=== PATIENT | male | born 1985 | race American Indian/Alaskan Native ===

== ENCOUNTER 2020-07-14 11:01 | Emergency (ER) | payer SELFPAY ==
[2020-07-14 11:18] VITALS: BP 172/117
--- NOTE | 2020-07-14 11:21 | Emergency Department Report ---
Chief Complaint: Back Pain/Injury Stated Complaint: MAJOR BACK PAIN - HPI History of Present Illness: 34-year-old -[place] male presents to the emergency room reporting has a history of hypertension and is noncompliant on medication as well as chronic back pain that he has had for over a year. Patient comes in complaining of back pain. Patient states that he will take intermittent Aleve. Patient denies any recent injuries falls or MVAs. Patient denies any dysuria no penile discharge no hematuria. Patient denies any incontinence of bowel or urine. Patient reports he does not have a primary care provider. Patient reports no limitations from his back pain. Denies any headache shortness of breath or chest pain. - Exam Vital Signs: Vital Signs 07/14/20 11:17 Temperature 98.8 F Pulse Rate 91 H Respiratory 20 Rate Blood Pressure 172/117 [Right] O2 Sat by Pulse 99 Oximetry Physical Exam: Alert and oriented x3 no acute distress nontoxic in appearance. Back full range of motion nontender to palpate Ambulatory without difficulties. MSE screening note: Focused history and physical exam performed. Due to findings the following was ordered: 34-year-old -[place] male presents to the emergency room reporting has a history of hypertension and is noncompliant on medication as well as chronic back pain that he has had for over a year. Patient comes in complaining of back pain. Patient states that he will take intermittent Aleve. Patient denies any recent injuries falls or MVAs. Patient denies any dysuria no penile discharge no hematuria. Patient denies any incontinence of bowel or urine. Patient reports he does not have a primary care provider. Patient reports no limitations from his back pain. Denies any headache shortness of breath or chest pain. Patient is referred to community provider to [facility] and Dr. Pierre Davison. ED Disposition for MSE Condition: Stable
== END 2020-07-14 11:57 | disposition left against medical advice (07) ==
LOC: ED 11:01
DX: M54.6 Pain in thoracic spine (principal); G89.29 Other chronic pain; I10 Essential (primary) hypertension
CPT/HCPCS: 99282

== ENCOUNTER 2021-05-19 11:23 | Emergency (ER) | payer SELFPAY ==
[2021-05-19] MEDS ORDERED: BALANCED SALT IRRIG 1 DROPS, TETRACAINE 0.5% 1 DROPS, FLUORESCEIN 1 MG OD ONE (11:37)
[2021-05-19] MEDS ORDERED: FLUORESCEIN 1 MG STRIP OP ONE (11:45)
[2021-05-19] MEDS ORDERED: TETRACAINE 0.5% OPHTH SOLN 4ML ONE (11:45)
[2021-05-19] MEDS ORDERED: cloNIDine 0.1 MG TAB PO ONE (11:56)
[2021-05-19] MEDS ORDERED: TETRACAINE 0.5% OPHTH SOLN 4ML OD NR (12:00)
[2021-05-19] MEDS ORDERED: BALANCED SALT IRRIG (BSS) OPHTH SOLN 15 ML OD NR (12:00)
[2021-05-19] MEDS ORDERED: FLUORESCEIN 1 MG STRIP OP NR (12:00)
--- NOTE | 2021-05-19 12:01 | Emergency Department Report ---
ED Eye Problem HPI - General Chief complaint: Eye Problems Stated complaint: RIGHT EYE PAIN Time Seen by Provider: 05/19/21 11:28 Source: patient, old records reviewed (Chronic hypertension noted) Mode of arrival: Ambulatory Limitations: No Limitations - History of Present Illness Initial comments: 35-year-old male with a past medical history of chronic hypertension but not on meds presents to the hospital with left-sided eye pain since yesterday morning. Patient states he has had watery discharge from the left eye for last 2 months. Since yesterday am he woke up with blurry vision, increased discharge, feel like his left eye was closed shut, and pain to the superior part of his eyelid with palpation. Patient also has worsening pain with light exposure patient does not wear contact lenses, glasses, denies recent trauma. He works as a recycler forklift driver truck driver. Patient presents hypertensive and has a history of chronic hypertension medication noncompliance without PMD follow - Related Data Previous Rx's Medication Instructions Recorded Last Taken Type Amlodipine Besylate [Norvasc] 5 mg PO DAILY #30 tablet 05/19/21 Unknown Rx Polymyxin B Sulf/Trimethoprim 1 drop OS Q3HR 7 Days drops 05/19/21 Unknown Rx [Polytrim Eye Drops] traMADoL [Ultram 50 MG tab] 50 mg PO Q6HR PRN #14 tablet 05/19/21 Unknown Rx Allergies Allergy/AdvReac Type Severity Reaction Status Date / Time No Known Allergies Allergy Unverified 07/14/20 11:11 ED Review of Systems ROS: Stated complaint: RIGHT EYE PAIN Other details as noted in HPI Comment: All other systems reviewed and negative ED Past Medical Hx - Past Medical History Previous Medical History?: Yes Hx Hypertension: Yes (noncompliant with meds) - Social History Smoking Status: Current Every Day Smoker Substance Use Type: Alcohol, Marijuana - Medications Home Medications: Home Medications Medication Instructions Recorded Confirmed Last Taken Type Amlodipine Besylate [Norvasc] 5 mg PO DAILY #30 tablet 05/19/21 Unknown Rx Polymyxin B Sulf/Trimethoprim 1 drop OS Q3HR 7 Days drops 05/19/21 Unknown Rx [Polytrim Eye Drops] traMADoL [Ultram 50 MG tab] 50 mg PO Q6HR PRN #14 tablet 05/19/21 Unknown Rx ED Physical Exam - General Limitations: No Limitations - Other Other exam information: General: No acute distress Head: Atraumatic Eyes: Left eye conjunctival injection with equal and reactive pupils. Extraocular movements intact. Mild tenderness to lid without noticeable swelling, erythema, or warmth. Visual acuity right 20/20, vision daily left 20/200. Bilateral 20/20 ENT: Moist mucous membranes Neck: Normal appearance, no midline tenderness Chest: Clear to auscultation bilaterally CV: Regular rate and rhythm Abdomen: Soft, normal bowel sounds, nontender, nondistended, no rebound or guarding Back: Normal inspection Extremity: Normal inspection, full range of motion Neuro: Alert O x 3, no facial asymmetry, speech clear, no gross motor sensory deficit Psych: Appropriate behavior Skin: No rash ED Course Vital Signs 05/19/21 11:28 Temperature 99.0 F Pulse Rate 94 H Respiratory 20 Rate Blood Pressure 181/116 O2 Sat by Pulse 99 Oximetry ED Medical Decision Making - Medical Decision Making 35-year-old male presents to the hospital with a left eye redness, pain, and blurry visions. Symptoms suggestive of conjunctivitis. Unfortunately Jasvir-Pen not available at this time to check patient's pressures. Patient did have pain relief with tetracaine drops. Patient be prescribed antibiotic eyedrops for acute conjunctivitis. BP medication prescribed for chronic hypertension. Ou tpatient follow-up encouraged - Differential Diagnosis Conjunctivitis, orbital cellulitis, glaucoma, scleritis Critical Care Time: No Critical care attestation.: If time is entered above; I have spent that time in minutes in the direct care of this critically ill patient, excluding procedure time. ED Disposition Clinical Impression: Conjunctivitis, left eye, Chronic hypertension, Noncompliance with medication regimen Disposition: HOME / SELF CARE / HOMELESS Is pt being admited?: No Does the pt Need Aspirin: No Condition: Stable Instructions: Bacterial Conjunctivitis, Adult, [id number], Hypertension, Adult, [id number], Hypertension (ED) Additional Instructions: Take the medication as prescribed. Follow-up with your doctor or doctor/clinic provided. It is very important you follow-up with your primary care doctor for further management of your blood pressure. Return if symptoms worsen as indicated by your discharge instructions. You have also been provided referral to sat instructor if symptoms continue to worsen despite treatment Prescriptions: Amlodipine Besylate [Norvasc] 5 mg PO DAILY #30 tablet Polymyxin B Sulf/Trimethoprim [Polytrim Eye Drops] 1 drop OS Q3HR 7 Days drops traMADoL [Ultram 50 MG tab] 50 mg PO Q6HR PRN #14 tablet PRN Reason: Pain Referrals: [facility] [Provider Group] - 3-5 Days NING APTHAK MD [Staff Physician] - 3-5 Days ( ) ELEANOR MANCILLA MD [Staff Physician] - 3-5 Days (EYE DOCTOR ) HORACE HERNANDEZ MD [Staff Physician] - 3-5 Days (EYE DOCTOR) PRIMARY MD NALINI [Primary Care Provider] - 3-5 Days
[2021-05-19 13:44] VITALS: BP 171/123
== END 2021-05-19 14:50 | disposition home or self-care (01) ==
LOC: ED 11:23
DX: H10.9 Unspecified conjunctivitis (principal); I10 Essential (primary) hypertension; Z91.14 Patient's other noncompliance with medication regimen; F17.200 Nicotine dependence, unspecified, uncomplicated; F12.10 Cannabis abuse, uncomplicated
CPT/HCPCS: 99282